=== PATIENT | male | born 1965 | race Native Hawaiian/Other Pacific Islander ===

== ENCOUNTER 2018-12-01 11:02 | Outpatient (CLI) | payer BC | END 2018-12-01 23:17 | disposition home or self-care (01) | LOC: LABW 11:02 | DX: M10.071 Idiopathic gout, right ankle and foot (principal) | CPT/HCPCS: 36415; 84550; 85651 ==

== ENCOUNTER 2020-05-15 13:20 | Emergency (ER) | payer BC ==
[~2020-05-15] VITALS: Ht 167.6 cm; Wt 45.2 kg
[2020-05-15 16:46] VITALS: BP 162/98; TEMP 99.9
== END 2020-05-15 16:46 | disposition home or self-care (01) ==
LOC: ED 13:25
PROC: 0HQ0XZZ Repair Scalp Skin, External Approach (ICD-10-PCS; principal; 2020-05-15)
DX: R56.9 Unspecified convulsions (principal); S01.01XA Laceration without foreign body of scalp, initial encounter; W01.198A Fall on same level from slipping, tripping and stumbling with subsequent striking against other object, initial encounter; Y92.89 Other specified places as the place of occurrence of the external cause
CPT/HCPCS: 90715; 96372; 99284

== ENCOUNTER 2020-05-23 08:28 | Emergency (ER) | payer BC ==
[~2020-05-23] VITALS: Ht 167.6 cm; Wt 83.9 kg
[2020-05-23 08:33] VITALS: BP 120/69; TEMP 98.9
== END 2020-05-23 08:50 | disposition home or self-care (01) ==
LOC: ED 08:28
DX: Z48.02 Encounter for removal of sutures (principal)